=== PATIENT | male | born 1950 | race Caucasian/White ===

== ENCOUNTER 2019-05-21 08:04 | Day surgery (SDC) | payer MEDICARE ==
[~2019-05-21] VITALS: Ht 180.3 cm; Wt 89.2 kg
[~2019-05-21 08:04] MED LIST: Synthroid25 MCG PO
[2019-05-21] MEDS ORDERED: CENTRUM SILVER1 EAC2 PO (08:49)
[2019-05-21] MEDS ORDERED: TURMERIC500 M2 PO (08:49)
[2019-05-21] MEDS ORDERED: FISH OIL 500 M1 EAC3 PO (08:50)
--- NOTE | 2019-05-21 10:13 | NUR ---
05/21/19 1013 Maryan Baum 1 MG EPI ADDED TO EACH OF THE FIRST 3 LACTATED RINGERS FOR IRRIGATION.
== END 2019-05-21 11:31 | disposition home or self-care (01) ==
LOC: ORSCSDS 08:04
PROVIDERS: Orthopaedic Surgery
PROC: 0RNJ4ZZ Release Right Shoulder Joint, Percutaneous Endoscopic Approach (ICD-10-PCS; principal; 2019-05-21 09:30)
PROC: 0LS14ZZ Reposition Right Shoulder Tendon, Percutaneous Endoscopic Approach (ICD-10-PCS; principal; 2019-05-21 09:30)
PROC: 0LQ14ZZ Repair Right Shoulder Tendon, Percutaneous Endoscopic Approach (ICD-10-PCS; principal; 2019-05-21 09:30)
PROC: 0LU14JZ Supplement Right Shoulder Tendon with Synthetic Substitute, Percutaneous Endoscopic Approach (ICD-10-PCS; principal; 2019-05-21 09:30)
DX: M75.111 Incomplete rotator cuff tear or rupture of right shoulder, not specified as traumatic (principal); M75.21 Bicipital tendinitis, right shoulder; M65.819 Other synovitis and tenosynovitis, unspecified shoulder
CPT/HCPCS: C1713; J0171; J0690; J1100; J1885; J2250; J2405; J2704; J3010; J7120

== ENCOUNTER 2019-10-01 09:09 | Day surgery (SDC) | payer MEDICARE ==
[~2019-10-01] VITALS: Ht 180.3 cm; Wt 87.4 kg
[~2019-10-01 09:09] MED LIST changes: +CENTRUM SILVER1 EAC2 PO; +FISH OIL 500 M1 EAC3 PO; +TURMERIC500 M2 PO
== END 2019-10-01 11:37 | disposition home or self-care (01) ==
LOC: ORSCSDS 09:09
PROVIDERS: Internal Medicine Gastroenterology
PROC: 0DBL8ZX Excision of Transverse Colon, Via Natural or Artificial Opening Endoscopic, Diagnostic (ICD-10-PCS; principal; 2019-10-01 10:30)
DX: Z12.11 Encounter for screening for malignant neoplasm of colon (principal); Z86.010 Personal history of colon polyps; Z80.0 Family history of malignant neoplasm of digestive organs; D12.3 Benign neoplasm of transverse colon; K64.8 Other hemorrhoids; Z85.46 Personal history of malignant neoplasm of prostate; Z79.899 Other long term (current) drug therapy
CPT/HCPCS: 88305; J2704; J7120

== ENCOUNTER 2022-05-17 08:32 | Day surgery (SDC) | payer MEDICARE ==
[~2022-05-17] VITALS: Ht 180.3 cm; Wt 86.9 kg
[~2022-05-17 08:32] MED LIST changes: +C COMPLEX1000 M1 PO; +VITAMIN D310 MC4 PO
--- NOTE | 2022-05-17 09:49 | NUR ---
Ambulatory in Day Surgery History, Chart, Medications and Allergies reviewed before start of procedure. Lungs clear anteriorly to Auscultation. Pre-Op teaching done. Pt verbalizes understanding.
--- NOTE | 2022-05-17 19:26 | NUR ---
SHIFT SUMMARY BECAME NAUSEATED, LIGHTHEADED w/ FIRST THERAPY SESSION. SINCE THEN HAS DONE VERY GOOD. AMBULATED IN HALLWAY. EATING, DRINKING, VOIDING. PAIN WELL MANAGED.
--- NOTE | 2022-05-18 04:28 | NUR ---
POD1 LEFT TOTAL KNEE. SENSATION AND CIRCULATION REMAINS C/D/I. AQUACEL DRESSING REMAINS C/D/I. KYRO PAD REMAINED IN PLACE T/O THE NIGHT. PT SLEPT WELL T/O THE NIGHT. DID TAKE ONE WALK T/O THE NIGHT WITH THE STEEL ERECTING PUSHER. NO REPORTS OF DIZZINESS OR LIGHT-HEADEDNESS NOTED. VOIDING W/O DIFFICULTY, TOLLERATING PO INTAKE W/O N/V. MEDICATED FOR PAIN WITH OXY AND SCHEDULED MEDS. VSS. PLAN FOR PT TO D/C HOME TODAY. THE PATIENT IS CURRENTLY RESTING IN BED, IN NO DISTRESS, CALL LIGHT IN REACH.
[2022-05-18 04:47] LABS: BASOPHILS ABSOLUTE AUTO 0.03 K/mm3 (0.00-0.23); BASOPHILS PERCENT AUTO 0 % (0-2); EOSINOPHILS ABSOLUTE AUTO 0.04 K/mm3 (0.00-0.68); EOSINOPHILS PERCENT AUTO 0 % (0-6); Hematocrit 36.3 % (37.0-53.0); Hemoglobin 12.4 g/dL (13.5-17.5); IMMATURE GRAN ABSOLUTE AUTO 0.04 K/mm3 (0.00-0.10); IMMATURE GRAN PERCENT AUTO 0 % (0-1); LYMPHOCYTES ABSOLUTE AUTO 1.46 K/mm3 (0.84-5.20); LYMPHOCYTES PERCENT AUTO 12 % (21-46); MONOCYTES ABSOLUTE AUTO 0.66 K/mm3 (0.16-1.47); MONOCYTES PERCENT AUTO 6 % (4-13); Mean Corpuscular HGB 29.6 pg (26.0-34.0); Mean Corpuscular HGB Conc 34.2 g/dL (31.5-36.5); Mean Corpuscular Volume 87 fL (80-100); NEUTROPHILS ABSOLUTE AUTO 9.78 K/mm3 (1.96-9.15); NEUTROPHILS PERCENT AUTO 82 % (41-73); Platelet Count 206 K/mm3 (150-400); RDW Coefficient Variation 13.7 % (11.7-14.2); RDW Standard Deviation 43.8 fL (35.1-46.3); Red Blood Cell Count 4.19 M/mm3 (4.30-5.90); White Blood Cell Count 12.01 K/mm3 (4.00-11.30)
[2022-05-18 05:12] LABS: Bun/Creatinine Ratio 20.8 (12.0-20.0); Calcium, Blood 8.6 mg/dL (8.5-10.1); Creatinine, Blood 0.91 mg/dL (0.60-1.20); Potassium, Blood 4.3 mmol/L (3.5-5.5)
[2022-05-18] MEDS ORDERED: Percocet 5-3251 EACH PO (09:54)
[2022-05-18] MEDS ORDERED: ASPI81CH PO (09:54)
--- NOTE | 2022-05-18 10:59 | NUR ---
DISCHARGE SUMMARY PT A&OX4, VSS/RA, ALYSSA PO, VOIDING, AMB FWW GB, UP TO CHAIR, PAIN MANAGED, IV DC'D. DC INS PROVIDED. PT REP UNDERSTANDING THOSE INS INC FU WITH SURGEON, PT OUTPT, DEANDRE/DOTTIE FORD, SHORT FREQ AMB. LEFT FLOOR VIA WC WITH BATTERY MECHANIC TO GO HOME WITH , WITH ALL PERSONAL POSSESSIONS, INCLUDING EXTRA AQUACEL AND DC PACKET.
== END 2022-05-18 10:21 | disposition home or self-care (01) ==
LOC: ORSCMMR 08:32 → ORD 10:00 → ORSCMMR 10:15 → SURS 13:44 → ORSCMMR 05-18 10:21
PROVIDERS: Orthopaedic Surgery
PROC: 8E0Y0CZ Robotic Assisted Procedure of Lower Extremity, Open Approach (ICD-10-PCS; principal; 2022-05-17 10:00)
PROC: 0SRD0JA Replacement of Left Knee Joint with Synthetic Substitute, Uncemented, Open Approach (ICD-10-PCS; principal; 2022-05-17 10:00)
DX: M17.12 Unilateral primary osteoarthritis, left knee (principal)
CPT/HCPCS: 27447; 20985; S2900; 36415; 73560-LT; 80048; 85025; 97110; 97116; 97161; A9270; C1776; J0171; J0690; J0735; J1100; J1170; J1885; J2250; J2405; J2550; J2704; J2795; J3010; J7120

== ENCOUNTER 2022-08-25 09:00 | Day surgery (SDC) | payer MEDICARE ==
[~2022-08-25] VITALS: Ht 180.3 cm; Wt 87.4 kg
[~2022-08-25 09:00] MED LIST changes: +ASPI81CH PO; +Percocet 5-3251 EACH PO
== END 2022-08-25 11:49 | disposition home or self-care (01) ==
LOC: ORSCSDS 09:00
DX: Z12.11 Encounter for screening for malignant neoplasm of colon (principal); Z80.0 Family history of malignant neoplasm of digestive organs; Z86.010 Personal history of colon polyps; D12.3 Benign neoplasm of transverse colon; K63.5 Polyp of colon; K64.4 Residual hemorrhoidal skin tags; Z85.46 Personal history of malignant neoplasm of prostate
CPT/HCPCS: 88305; J2704; J7120